=== PATIENT | female | born 1990 | race African-American/Black ===

== ENCOUNTER 2018-07-02 14:41 | Emergency (ER) | payer OTHER ==
[~2018-07-02] VITALS: Ht 162.6 cm; Wt 127.0 kg
[2018-07-02 14:50] VITALS: BP 150/92
[2018-07-02] MEDS ORDERED: Methocarbamol 500mg tab ORAL ONE (15:30)
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
[2018-07-02] MEDS ORDERED: LIDOCAINE700 M1 TP (16:33)
[2018-07-02] MEDS ORDERED: ROBAXIN500 MG PO (16:33)
[2018-07-02] MEDS ORDERED: TYLENOL EXTRA500 MG ORAL (16:33)
[2018-07-02 16:57] VITALS: BP 150/92
== END 2018-07-02 16:58 | disposition home or self-care (01) ==
LOC: EMR 15:49
DX: M54.2 Cervicalgia (principal); M54.9 Dorsalgia, unspecified; V43.52XA Car driver injured in collision with other type car in traffic accident, initial encounter; Y92.414 Local residential or business street as the place of occurrence of the external cause
CPT/HCPCS: 99283